=== PATIENT | female | born 1985 | race Caucasian/White ===

== ENCOUNTER 2018-02-06 07:47 | Outpatient (CLI) | payer BC ==
--- NOTE | 2018-02-06 09:56 | ULT ---
ABDOMEN ULTRASOUND: HISTORY: Right upper quadrant pain. FINDINGS: The liver demonstrates a homogeneous echotexture without focal mass or intrahepatic ductal dilatation . The spleen measures 10.1 cm in length and is normal. No gallstones, gallbladder wall thickening, or pericholecystic fluid is seen. the common duct measures 5 mm in diameter. The pancreas, left kid annette, and visualized portions of the aorta and IVC are normal. No right-sided hydronephrosis is seen. Multiple shadowing calculi are seen in the right kidney, measuring up to 8 mm. No free fluid is no violeta in the abdomen. IMPRESSION: 1. No evidence of cholelithiasis. 2. Nonobstructing right renal calculi. POS: [facility]
== END 2018-02-06 07:48 | disposition home or self-care (01) ==
LOC: NAV ULT 07:47
PROVIDERS: ATTEND Family Medicine
DX: R10.13 Epigastric pain (principal); N20.0 Calculus of kidney
CPT/HCPCS: 76700